=== PATIENT | female | born 1935 ===

== ENCOUNTER 2016-11-06 17:06 | Observation (INO) | payer MEDICARE, BC ==
[2016-11-06] MEDS ORDERED: BAYER CHEWABLE81 M2 PO (17:36)
[2016-11-06] MEDS ORDERED: VITAMIN D31000 UNI3 PO (17:36)
[2016-11-06] MEDS ORDERED: ISOSORBIDE MONO30 M4 PO (17:37)
[2016-11-06] MEDS ORDERED: HYDRALAZINE HCL25 M1 PO (17:37)
[2016-11-06] MEDS ORDERED: TOPROL XL50 M1 PO (17:38)
[2016-11-06] MEDS ORDERED: AMIODARONE HCL200 M1 PO (17:38)
[2016-11-06] MEDS ORDERED: LASIX40 M1 PO (17:39)
[2016-11-06] MEDS ORDERED: PROTONIX40 M2 PO ×2 (17:39→18:47)
[2016-11-06] MEDS ORDERED: KLOR-CON M2020 ME1 PO (17:40)
[2016-11-06] MEDS ORDERED: TYLENOL EXTRA500 M1 PO (18:34)
[2016-11-06] MEDS ORDERED: ASPIRIN EC81 MG PO (18:41)
[2016-11-06] MEDS ORDERED: HYDROCHLOROTHIA25 M1 PO (18:41)
[2016-11-06] MEDS ORDERED: SYNTHROID88 MC1 PO (18:42)
[2016-11-06] MEDS ORDERED: MAGNESIUM OXID400 M1 PO (18:42)
[2016-11-06] MEDS ORDERED: LOPRESSOR50 M1 PO (18:43)
[2016-11-06] MEDS ORDERED: MULTI VITAMIN1 EAC2 PO (18:45)
[2016-11-06] MEDS ORDERED: NOXAFIL100 MG PO (18:46)
[2016-11-06] MEDS ORDERED: ZOFRAN4 M2 PO (18:47)
[2016-11-06] MEDS ORDERED: POTASSIUM CHLO20 ME3 PO (18:48)
[2016-11-06] MEDS ORDERED: PREDNISONE10 M1 PO (18:49)
[2016-11-06] MEDS ORDERED: ULTRAM50 M1 PO (18:49)
[2016-11-06] MEDS ORDERED: COUMADIN2 M1 PO (18:50)
[2016-11-06] MEDS ORDERED: FOLIC ACID0.8 M1 PO (18:50)
[2016-11-06] MEDS ORDERED: CIPRO500 M2 PO (19:02)
[2016-11-06 20:44] LABS: BASO % 0.2 % (0-2); EOS % 0.1 % (0-7); HCT-HEMATOCRIT 32.2 % (34.0-49.0); HGB-HEMOGLOBIN 11.1 gm/dl (12.0-15.5); IMMATURE GRANULOCYTES ABSOLUTE 0.02 tho/cmm (0-0.03); IMMATURE GRANULOCYTES PERCENT 0.2 % (0-0.3); LYMPH % 12.7 % (20-45); LYMPH ABSOLUTE COUNT 1.4 tho/cmm (0.8-4.5); MCH (MEAN CORPUSCULAR HGB) 30.7 pg (28.0-32.0); MCHC MEAN CORPUSCULAR HGB CONC 34.5 % (32.0-36.0); MCV (MEAN CELL VOLUME) 89.2 fl (82.0-96.0); MEAN PLATELET VOLUME 9.6 cmc (9.4-12.4); MONO % 7.3 % (0-12); MONOCYTE ABSOLUTE COUNT 0.8 tho/cmm (0.0-1.2); NEUTROPHILS % 79.5 % (40-80); PLATELET COUNT 153 tho/cmm (150-450); RED BLOOD COUNT 3.61 mil/cmm (4.00-5.20); RED CELL DISTRIBUTION WIDTH 15.5 % (12.4-16.4); WHITE BLOOD COUNT 11.3 tho/cmm (4.0-10.0)
[2016-11-06 21:01] LABS: ANION GAP 10 mmol/L (0-20); BLOOD UREA NITROGEN 11 mg/dl (6-24); CALCIUM 8.2 mg/dl (8.5-10.5); CARBON DIOXIDE-VENOUS 30 mmol/L (22-32); CHLORIDE 103 mmol/l (96-110); CREATININE 0.63 mg/dl (0.50-1.10); GLUCOSE 106 mg/dL (70-110); POTASSIUM 3.4 mmol/L (3.7-5.1); SODIUM 140 mmol/L (135-145); eGFR VALUE FOR BLACK >90 mL/Min
[2016-11-06 21:02] LABS: MAGNESIUM 2.1 mg/dl (1.8-2.6)
[2016-11-06 21:21] LABS: CKMB <0.5 ng/ml (<3.6)
[2016-11-07 01:00] LABS: HCT-HEMATOCRIT 31.5 % (34.0-49.0)
[2016-11-07 01:32] LABS: INR 1.5 INR (0.9-1.1); PROTHROMBIN TIME 17.4 SECONDS (9.0-13.6)
[2016-11-07 04:33] LABS: BASO % 0.2 % (0-2); EOS % 0.4 % (0-7); HCT-HEMATOCRIT 32.2 % (34.0-49.0); HGB-HEMOGLOBIN 10.8 gm/dl (12.0-15.5); IMMATURE GRANULOCYTES ABSOLUTE 0.01 tho/cmm (0-0.03); IMMATURE GRANULOCYTES PERCENT 0.1 % (0-0.3); LYMPH % 16.5 % (20-45); LYMPH ABSOLUTE COUNT 1.3 tho/cmm (0.8-4.5); MCH (MEAN CORPUSCULAR HGB) 30.1 pg (28.0-32.0); MCHC MEAN CORPUSCULAR HGB CONC 33.5 % (32.0-36.0); MCV (MEAN CELL VOLUME) 89.7 fl (82.0-96.0); MEAN PLATELET VOLUME 9.7 cmc (9.4-12.4); MONO % 9.7 % (0-12); MONOCYTE ABSOLUTE COUNT 0.8 tho/cmm (0.0-1.2); NEUTROPHIL ABSOLUTE COUNT 5.9 tho/cmm (1.6-8.0); NEUTROPHIL-AUTOMATED 5.9 tho/cmm (1.6-8.0); NEUTROPHILS % 73.1 % (40-80); PLATELET COUNT 169 tho/cmm (150-450); RED BLOOD COUNT 3.59 mil/cmm (4.00-5.20); RED CELL DISTRIBUTION WIDTH 15.8 % (12.4-16.4); WHITE BLOOD COUNT 8.1 tho/cmm (4.0-10.0)
[2016-11-07 04:50] LABS: AMYLASE 41 U/L (20-90); LIPASE 106 U/L (73-393)
[2016-11-07 04:59] LABS: ALB/GLOB RATIO 0.9 (0.8-2.0); ALBUMIN 2.7 g/dl (3.5-5.0); ALKALINE PHOSPHATASE 72 U/L (33-138); ALT/SGPT 16 U/L (12-78); ANION GAP 11 mmol/L (0-20); AST/SGOT 25 U/L (10-40); BILIRUBIN,TOTAL 0.7 mg/dl (0-1.5); BLOOD UREA NITROGEN 13 mg/dl (6-24); CARBON DIOXIDE-VENOUS 30 mmol/L (22-32); CHLORIDE 104 mmol/l (96-110); CHOLESTEROL 86 mg/dl (120-200); CREATININE 0.66 mg/dl (0.50-1.10); GLUCOSE 80 mg/dL (70-110); HDL CHOLESTEROL 67 mg/dl (40-60); LDL CHOLESTEROL 8 mg/dl (0-99); POTASSIUM 3.8 mmol/L (3.7-5.1); SODIUM 141 mmol/L (135-145); TRIGLYCERIDES 56 mg/dl (<149); VLDL 11 mg/dl (0-30); eGFR VALUE FOR BLACK >90 mL/Min
[2016-11-07 05:03] LABS: TSH-THYROID STIMULATING HORM. 0.12 uIU/ml (0.40-3.80)
[2016-11-07] MEDS ORDERED: PLAQUENIL200 M1 PO (11:46)
[2016-11-07] MEDS ORDERED: NORVASC5 M2 PO (11:47)
[2016-11-07] MEDS ORDERED: CULTURELLE1 EAC1 PO (11:47)
[2016-11-07] MEDS ORDERED: PRINIVIL10 M1 PO (11:47)
[2016-11-07 13:06] LABS: URINE BILIRUBIN NEGATIVE (NEG); URINE BLOOD SMALL (NEG); URINE GLUCOSE (UA) NEGATIVE (NEG); URINE KETONE MODERATE (NEG); URINE LEUKOCYTE ESTERASE POSITIVE (NEG); URINE NITRITE POSITIVE (NEG); URINE PROTEIN MODERATE (NEG); URINE SPECIFIC GRAVITY 1.025 (1.003-1.030)
[2016-11-07 13:12] LABS: URINE COLOR YELLOW
[2016-11-07 13:13] LABS: URINE APPEARANCE HAZY
[2016-11-07 13:21] LABS: URINE BACTERIA 2+; URINE WBC 80-90 /[HPF] (0-5)
[2016-11-07 13:36] LABS: HCT-HEMATOCRIT 34.9 % (34.0-49.0); HGB-HEMOGLOBIN 11.5 gm/dl (12.0-15.5)
[2016-11-07 20:29] LABS: HCT-HEMATOCRIT 32.1 % (34.0-49.0); HGB-HEMOGLOBIN 10.9 gm/dl (12.0-15.5)
[2016-11-08 05:55] LABS: INR 1.3 INR (0.9-1.1); PROTHROMBIN TIME 15.1 SECONDS (9.0-13.6)
[2016-11-08] MEDS ORDERED: MIRALAX17 G2 PO (16:47)
== END 2016-11-08 17:20 | disposition home health service (06) ==
LOC: PCUB 17:06
PROVIDERS: Internal Medicine; Physician Assistant Medical; ADMIT Internal Medicine Interventional Cardiology
PROC: 0DB68ZX Excision of Stomach, Via Natural or Artificial Opening Endoscopic, Diagnostic (ICD-10-PCS; principal; 2016-11-07)
DX: K22.8 Other specified diseases of esophagus (principal); K29.50 Unspecified chronic gastritis without bleeding; I10 Essential (primary) hypertension; M06.9 Rheumatoid arthritis, unspecified; F32.9 Major depressive disorder, single episode, unspecified; K21.9 Gastro-esophageal reflux disease without esophagitis; N31.9 Neuromuscular dysfunction of bladder, unspecified; E11.9 Type 2 diabetes mellitus without complications; E78.5 Hyperlipidemia, unspecified; R10.9 Unspecified abdominal pain; D64.9 Anemia, unspecified; K59.00 Constipation, unspecified; E89.0 Postprocedural hypothyroidism; Z79.01 Long term (current) use of anticoagulants; Z79.2 Long term (current) use of antibiotics; Z79.52 Long term (current) use of systemic steroids; Z79.82 Long term (current) use of aspirin; Z79.899 Other long term (current) drug therapy; Z88.2 Allergy status to sulfonamides; Z88.5 Allergy status to narcotic agent; Z87.440 Personal history of urinary (tract) infections; Z95.2 Presence of prosthetic heart valve; Z90.49 Acquired absence of other specified parts of digestive tract; Z98.890 Other specified postprocedural states
CPT/HCPCS: C9113; G0378; G8978-GO-CI; G8978-GP-CJ; G8979-GO-CI; G8979-GP-CI; G8980-GO-CI; G8980-GP-CJ; J2270; J2405; J3480; J7030